=== PATIENT | male | born 1945 | race Caucasian/White ===

== ENCOUNTER 2017-03-27 06:43 | Inpatient (IN) ==
[2017-03-21 15:55] LABS: Appearance,Urine CLEAR; Bilirubin,Urine NEG (NEG); Color,Urine YELLOW; Glucose,Urine (UA) NEGATIVE (NEG); Leukocyte Esterase,Urine NEG /uL (NEG); Nitrate,Urine NEG (NEG); Protein,Urine NEG (NEG); Specific Gravity,Urine 1.015 (1.000-1.035); Urine Blood NEG mg/dL (<0.03); Urobilinogen,Urine NEG (NEG)
[2017-03-21 16:53] LABS: Blood Urea Nitrogen 11 mg/dl (8-23)
[2017-03-21 17:05] LABS: Basophils # (Auto) 0 K/mcL (0.0-0.3); Basophils % (Auto) 0.3 % (0.0-2.0); Eosinophils # (Auto) 0.2 K/mcL (0.0-0.7); Eosinophils % (Auto) 2.4 % (0.0-7.0); Granulocytes % (Auto) 69.3 % (38.0-78.0); Lymphocytes # (Auto) 1.8 K/mcL (1.5-4.8); Lymphocytes % (Auto) 22.9 % (15.5-49.0); Mean Cell Volume 93.7 fL (80.0-100.0); Mean Corpuscular HGB Conc 34.8 g/dL (31.0-36.0); Mean Corpuscular Hemoglobin 32.6 pg (26.0-34.0); Monocytes # (Auto) 0.4 K/mcL (0.1-0.9); Monocytes % (Auto) 5.1 % (1.0-12.0); Platelet Count 198 K/mcL (140-440); RBC 4.83 M/mcL (4.50-5.90); Red Cell Distribution Width 12.4 % (11.5-14.5)
[~2017-03-27 06:43] MED LIST: CELECOXIB 200 MG CAPSULE PO SCH; PREGABALIN 75 MG CAPSULE PO SCH; ceFAZolin 1 GM VIAL IV SCH; oxyCODONE 10 MG TAB.ER.12H PO SCH
[2017-03-27] MEDS ORDERED: SUCCINYLCHOLINE 20 MG/ML ML IV ONE (09:36)
[2017-03-27] MEDS ORDERED: fentaNYL 100 MCG/2 ML VIAL IV ONE (09:36)
[2017-03-27] MEDS ORDERED: GLYCOPYRROLATE 0.2 MG/ML VIAL IV ONE (09:36)
[2017-03-27] MEDS ORDERED: ePHEDrine 50 MG/ML AMPUL IV ONE (09:36)
[2017-03-27] MEDS ORDERED: PHENYLEPHRINE 10 MG/ML VIAL ONE (09:36)
[2017-03-27] MEDS ORDERED: DEXAMETHASONE 10 MG/ML VIAL ONE (09:36)
[2017-03-27] MEDS ORDERED: PROPOFOL 200 MG/20 ML VIAL IV ONE (09:36)
[2017-03-27] MEDS ORDERED: ONDANSETRON 4 MG/2 ML VIAL ONE (09:36)
[2017-03-27] MEDS ORDERED: LIDOCAINE HCL/PF 100 MG/5 ML SYRINGE IV ONE (09:36)
[2017-03-27] MEDS ORDERED: NALOXONE HCL 0.4 MG/ML VIAL IV PRN (11:17)
[2017-03-27] MEDS ORDERED: ATROPINE SULFATE 0.4 MG/ML VIAL IV PRN (11:17)
[2017-03-27] MEDS ORDERED: METHOCARBAMOL 1,000 MG/10 ML VIAL IV PRN (11:17)
[2017-03-27] MEDS ORDERED: IPRATROPIUM/ALBUTEROL 3 ML AMPUL.NEB NEB PRN (11:17)
[2017-03-27] MEDS ORDERED: HYDROmorphone 2 MG/ML SYRINGE IV PRN (11:17)
[2017-03-27] MEDS ORDERED: BENZOCAINE/MENTHOL 1 LOZENGE PO PRN ×2 (11:17→11:29)
[2017-03-27] MEDS ORDERED: ONDANSETRON 4 MG/2 ML VIAL IV PRN ×2 (11:17→11:29)
[2017-03-27] MEDS ORDERED: MEPERIDINE 25 MG/ML SYRINGE IV PRN (11:17)
[2017-03-27] MEDS ORDERED: FLUMAZENIL 0.1 MG/ML ML IV PRN (11:17)
[2017-03-27] MEDS ORDERED: ePHEDrine 50 MG/ML AMPUL IV PRN (11:17)
[2017-03-27] MEDS ORDERED: METOPROLOL TARTRATE 5 MG/5 ML VIAL IV PRN (11:17)
[2017-03-27] MEDS ORDERED: diphenhydrAMINE 50 MG/ML VIAL IV PRN (11:17)
[2017-03-27] MEDS ORDERED: BUPIVACAINE W/EPI 0.5% 50 ML VIAL IJ ONE (11:23)
--- NOTE | 2017-03-27 11:28 | Brief Operative Note ---
Date of procedure: 03/27/17 Pre-op diagnosis: Right shoulder chronic massive rtc tear Post-op diagnosis: same Procedure: Right reverse total shoulder arthroplasty, bicep tenodesis Grafts/Implants: Yes (Biomet Comprehensive 14 mini stem, std baseplate, +3 liner , 36 glenosphere) Anesthesia: GETA Findings: absent rtc Complications: none Surgeon: Orestes Saenz Rn House Supervisor: Krishna Gilbert Estimated blood loss (cc): 150 Specimens Removed/Pathology: none sent Condition: stable Disposition: PACU
[2017-03-27] MEDS ORDERED: FLEETS ADULT ENEMA PR PRN (11:29)
[2017-03-27] MEDS ORDERED: POLYETHYLENE GLYCOL 3350 17 GM PACKET PO PRN (11:29)
[2017-03-27] MEDS ORDERED: TRANEXAMIC ACID 1,000 MG/10 ML VIAL IV ONE (11:29)
[2017-03-27] MEDS ORDERED: MAGNESIUM HYDROXIDE 30 ML ORAL.SUSP PO PRN (11:29)
[2017-03-27] MEDS ORDERED: BISACODYL 10 MG SUPP.RECT PR PRN (11:29)
[2017-03-27] MEDS ORDERED: KETOROLAC 30 MG/ML VIAL IV PRN (11:29)
[2017-03-27] MEDS ORDERED: LACTATED RINGERS 1,000 ML IV SCH (11:30)
[2017-03-27] MEDS: fentaNYL 100 MCG/2 ML VIAL IV PRN ×3 (12:02→12:51)
[2017-03-27] MEDS ORDERED: ACETAMINOPHEN 1,000 MG/100 ML BOTTLE IV ONE (12:18)
[2017-03-27] MEDS: 0.9 % SODIUM CHLORIDE 1,000 ML IV SCH (13:18)
[2017-03-27] MEDS: 0.9 % SODIUM CHLORIDE 10 ML SYRINGE IV SCH ×2 (13:34→21:31)
--- NOTE | 2017-03-27 14:23 | XRay Report ---
CLINICAL INFORMATION: Postop shoulder prostheses COMPARISON: None. FINDINGS: Right shoulder prostheses is anatomically aligned. No osseous abnormality. Soft tissues swelling seen as expected IMPRESSION: Negative Interpreted and Authenticated by: Joe Acosta 03/27/17
[2017-03-27] MEDS: HYDROcodone/APAP 10/325MG TABLET PO PRN ×3 (15:07→21:29)
[2017-03-27] MEDS ORDERED: METOPROLOL SUCCINATE 25 MG TAB.XL.24H PO ONE (16:57)
[2017-03-27] MEDS: ceFAZolin 1 GM VIAL IV SCH (17:42)
[2017-03-27] MEDS: DOCUSATE SODIUM 100 MG CAPSULE PO SCH (20:38)
[2017-03-27] MEDS ORDERED: TAMSULOSIN 0.4 MG CAPSULE PO SCH (21:00)
[2017-03-27] MEDS ORDERED: SENNOSIDES 1 TABLET PO SCH (21:00)
[2017-03-28] MEDS: 0.9 % SODIUM CHLORIDE 1,000 ML IV SCH ×2 (00:02→07:42)
[2017-03-28] MEDS: ceFAZolin 1 GM VIAL IV SCH (01:45)
[2017-03-28] MEDS: HYDROcodone/APAP 10/325MG TABLET PO PRN ×2 (01:48→08:22)
--- NOTE | 2017-03-28 06:31 | Discharge Summary ---
Ortho Discharge - TSA - Patient Instructions Diet: Regular Diet Activity: non weight bearing (RUE) Total Shoulder Protocol: Leave immobilizer in place except for bathing and ROM. Abduction pillow. Continue to wear sling until seen by physician. Codman Pendulum : These exercises use momentum produced by your body to move your shoulder joint. Bend your knees and shift your weight to your front leg, then back, allowing your arm to swing in the same directions. Using the same technique, alternately shift your weight between your right and left legs, allowing your arm to swing from side to side. These exercises are also performed in counterclockwise and clockwise circular motions. Typically these exercises are performed several times per day, for a set number repetitions or minutes, such as 20 times in a row or 5 minutes at a time. Dressing Care: May shower in 2 days, Aquacel Ag - leave on for 5 days - Follow Up Plan Follow Up Appointments: Krishna Gilbert PA-C [Physician Supervisor [facility]] - 04/11/17 10:00 am Disposition: Home, Self-Care Prognosis: Good Rehab Potential: Good - Orders For Discharge Additional Discharge Orders: Physical Therapy at Discharge - TSA Location: Determined By Patient Brace/Splint Location: Determined By Patient
--- NOTE | 2017-03-28 07:17 | Orthopedic Progress Note ---
Subjective Patient information: Note initiated : 03/28/17 at 7:14 am Service Date, if different from initiated Date: [] Patient: Derek Raphael 71 y/o M admitted on 03/27/17 for Right Reverse Total Shoulder Arthroplasty. Chief Complaint: [] Principal diagnosis: s/p R reverse TSA Interval history: Pain well controlled now, no complaints Objective Vital signs: Vital Signs Temp Pulse Pulse Resp BP Pulse Ox 03/28/17 04:00 97.7 F 77 12 154/77 97 03/27/17 23:04 98.3 F 100 H 12 142/91 92 03/27/17 21:23 85 152/85 03/27/17 20:00 97.4 F 103 H 22 136/90 92 03/27/17 15:50 136/90 96 03/27/17 15:32 96 03/27/17 14:50 124/78 97 03/27/17 14:20 128/80 97 03/27/17 13:50 131/82 97 03/27/17 13:35 138/85 96 03/27/17 13:30 10 L 98 03/27/17 13:20 10 L 117/79 97 03/27/17 13:05 96.9 F L 10 L 124/80 97 03/27/17 12:52 97.6 F 97 H 17 125/68 96 03/27/17 12:38 94 H 17 113/73 98 03/27/17 12:21 95 H 15 124/76 99 03/27/17 12:16 96 H 12 139/80 98 03/27/17 12:11 95 H 20 121/66 99 03/27/17 12:06 98 H 12 143/85 99 03/27/17 12:01 102 H 16 155/74 99 03/27/17 11:56 96 H 17 171/83 100 03/27/17 11:51 97.2 F 95 H 16 150/74 100 Intake and Output 03/27/17 03/28/17 03/28/17 21:59 05:59 13:59 Intake Total 980 / 980 1717 / 1717 Output Total 450 / 450 675 / 675 500 / 500 Balance 530 / 530 1042 / 1042 -500 / -500 Intake: IV 1417 / 1417 Sodium Chloride 0.9% 1, 1417 / 1417 000 ml @ 100 mls/hr IV . Q10H PHANI Rx#:[id number] Oral 980 / 980 300 / 300 Output: Void Amount 450 / 450 675 / 675 500 / 500 Straight 400 / 400 Other: Weight 175 lb Intake & Output: Intake & Output 03/27/17 03/28/17 03/28/17 21:59 05:59 13:59 Intake Total 980 / 980 1717 / 1717 Output Total 450 / 450 675 / 675 500 / 500 Balance 530 / 530 1042 / 1042 -500 / -500 Weight 175 lb Intake: IV 1417 / 1417 Sodium Chloride 0.9% 1, 1417 / 1417 000 ml @ 100 mls/hr IV . Q10H PHANI Rx#:[id number] Oral 980 / 980 300 / 300 Output: Void Amount 450 / 450 675 / 675 500 / 500 Straight 400 / 400 Dressing: Yes clean, Yes dry Neurological exam IM: Yes neurovascular intact - Labs CBC & BMP: 03/21/17 14:36 03/21/17 14:35 Labs: Orthopedic Labs 03/21/17 14:35 PT 14.0 INR 1.1 03/21/17 14:36 Hgb 15.7 Hct 45.2 Assessment and Plan (1) Status post reverse total arthroplasty of right shoulder POD#1-pain controlled, no complaints, wants to d/c home -d/c Status: Acute
[2017-03-28] MEDS ORDERED: OMEPRAZOLE 20 MG CAPSULE PO SCH (07:30)
[2017-03-28] MEDS: 0.9 % SODIUM CHLORIDE 10 ML SYRINGE IV SCH (07:55)
[2017-03-28] MEDS: DOCUSATE SODIUM 100 MG CAPSULE PO SCH (08:22)
[2017-03-28] MEDS ORDERED: VITAMIN D3 1,000 UNIT TABLET PO SCH (09:00)
[2017-03-28] MEDS ORDERED: FISH OIL 1,000 MG CAPSULE PO SCH (09:00)
[2017-03-28] MEDS ORDERED: MSM PO SCH (09:00)
[2017-03-28] MEDS ORDERED: BETA CAROTENE 10000 UNIT PO SCH (09:00)
[2017-03-28] MEDS ORDERED: GLUCOSAMINE HCL PO SCH (09:00)
[2017-03-28] MEDS ORDERED: VITAMIN E (DL,TOCOPHERYL ACET) 400 UNIT CAPSULE PO SCH (09:00)
[2017-03-28] MEDS ORDERED: AZELASTINE NAS SCH (09:00)
[2017-03-28] MEDS ORDERED: FLUTICASONE NAS SCH (09:00)
[2017-03-28] MEDS ORDERED: ASPIRIN 81 MG TAB.CHEW CHEWED SCH (09:00)
[2017-03-28] MEDS ORDERED: Fluticasone/Vilanterol [Breo Ellipta] 200-25 Mcg Inhaler INH SCH (09:00)
--- NOTE | 2017-03-28 09:55 | Operative Note ---
DATE OF OPERATION: 03/27/2017 PREOPERATIVE DIAGNOSIS: Right shoulder massive chronic rotator cuff tear. POSTOPERATIVE DIAGNOSIS: Right shoulder massive chronic rotator cuff tear plus biceps tendinopathy. PROCEDURES PERFORMED: 1. Right reverse total shoulder arthroplasty with Biomet comprehensive size 14 mini stem, a standard baseplate with a +3 polyethylene insert on a 36 standard glenosphere. 2. Bicep tenodesis. SURGEON: Orestes Saenz MD. RIGGER APPRENTICE: Babak Gilbert PA-C. ANESTHESIA: General. DRAINS: None. SPECIMENS: Bone cuts, which were discarded. BLOOD LOSS: 150 mL COMPLICATIONS: None. POSTOPERATIVE CONDITION: Stable. INDICATIONS FOR SURGERY: This is a 71-year-old male who had a remote history of rotator cuff tear. He had some weakness as well as pain. MRI showed a massive chronic rotator cuff tear with atrophy. FINDINGS AT SURGERY: There was no significant rotator cuff, biceps was severely tendinopathic. Post-procedure showed good stability and range of motion. PROCEDURE IN DETAIL: The patient had been seen preoperatively. Informed consent had been obtained after discussion of risks and benefits of surgery. Risks including, but not limited to, bleeding; infection, possibly requiring implant removal and prolonged IV antibiotics; injury to nerves, blood vessels, and other surrounding structures; anesthetic risks; incomplete or no resolution of symptoms; stiffness, pain; dislocation; fracture; possibility of needing further surgery. He understood these risks and wished to proceed. Correct operative site was marked and the patient was taken to the operating room and general anesthesia was induced. He was carefully positioned in the beach chair position and pressure points carefully padded. Right shoulder and upper extremity were then carefully prepped and draped in normal sterile fashion and a time-out was performed verifying patient name, operative site, and plan. Ioban was used to cover all skin surfaces and then a standard deltopectoral incision was made with scalpel through skin and subcutaneous tissue. Hemostasis was obtained with Bovie cautery. IrriSept was irrigated and then we identified the deltopectoral interval. There was no real identifiable cephalic vein. We dissected bluntly through the interval and then developed the subdeltoid space with blunt finger dissection. Zuniga deltoid retractor was placed and then a blue handle retractor placed underneath the conjoined tendon. There was a pseudocapsule that had developed around the shoulder. We went ahead and incised over the biceps tendon and split this up to the glenoid. We then amputated the biceps off the superior glenoid and this was noted to be severely tendinopathic. There was some tissue attached to the lesser tuberosity, so we did perform a lesser tuberosity osteotomy and then dislocated the humeral head anteriorly. A drill hole was made superiorly and we began hand reaming up to a size 14. We then pinned our cutting block with 30 degrees retroversion and then cut our humeral head cut. We then started broaching and broached up to a size 14. We then placed the cut protector. The humeral head was subluxed posteriorly and we exposed the glenoid. Labrum was excised circumferentially and then a guide pin was placed placing the guide along the inferior curvature and it already had a built-in 10 degreed cranial tilt. This was drilled bicortically and then we used the reamer to ream until we had cancellous bone exposed on the inferior half and had just made contact on the superior portion. We irrigated IrriSept and then opened the mini baseplate. This was impacted and then we depth gauged our central hole which measured at 25. We placed a 25 mm 6.5 screw. We then drilled our superior screw. We used the variable angle guide and tried to place a locking screw which did not work, so we went with a nonlocking 35 mm screw that got excellent purchase. We then drilled the inferior, posterior, and anterior holes and placed locking screws. Once this was completed, we placed a glenosphere trial. We started off on letter B for inferior offset and then redislocated the humerus. We removed the cut protector and then trialed a standard. We were able to reduce this without too much difficulty, so we went ahead and dislocated and removed the humeral component. We then removed the glenosphere trial and opened the definitive Glenosphere implant inferior implant. We irrigated with IrriSept and after a minute pulse lavaged. We assembled the glenosphere actually with a letter C for inferior offset and then carefully cleaned and dried the taper and then impacted with the offset inferiorly. We then re-exposed our humerus and irrigated IrriSept, after a minute pulse lavaged and then impacted the size 14 stem. We then decided to trial with a +3 and we were still able to reduce the shoulder, so we went ahead and opened a +3 insert. This was assembled onto a standard tray. The stem was cleaned and dried with a taper and then we impacted the humeral component. The shoulder was reduced with excellent tension and we checked our range of motion. It was stable throughout. We did a final IrriSept irrigation and after waiting a minute we pulse lavaged copiously with saline. A #2 FiberWire was used through the tray of the humeral component and around our subscapularis appearing tissue and lesser tuberosity and tied. We then also tenodesed the biceps after amputating the proximal portion with a suture. We then closed the deltopectoral interval with running #1 Vicryl. Final IrriSept irrigation was done and after a final pulse lavage. Then, 2-0 Monocryl and then radha for skin. Xeroform and sterile dressing were applied and then arm was placed in an abductor immobilizer. The patient was awakened, extubated, and transferred to recovery in stable condition. BJB:patty Job ID: [id number] Doc ID: [id number] Orestes Saenz MD
[2017-03-28] MEDS ORDERED: PNEUMOCOCCAL 23-VAL P-SAC VAC 0.5 ML VIAL IM ONE (10:00)
[2017-03-28] MEDS ORDERED: FLU VACC QS2017-18 36MOS UP/PF 60 MCG/0.5 ML SYRINGE IM ONE (10:00)
[2017-03-29] MEDS ORDERED: IBUPROFEN 800 MG TABLET PO PRN (11:35)
== END 2017-03-28 09:45 | disposition home or self-care (01) | DRG 483 ==
LOC: MEDSUR 06:43
PROVIDERS: ADMIT Orthopaedic Surgery; ATTEND Orthopaedic Surgery